=== PATIENT | female | born 1955 | race American Indian/Alaskan Native ===

== ENCOUNTER 2020-02-25 08:29 | Day surgery (SDC) | payer BC, MEDICARE ==
[~2020-02-25 08:29] MED LIST: LIDOCAINE MPF (2%) 20 MG/1 ML VIAL 5 ML ONE; SODIUM CHLORIDE 0.9% 1000 ML 1,000 ML IV SCH
--- NOTE | 2020-02-25 09:48 | Anesthesia Consultation ---
Anesthesia Consult and Med Hx Date of service: 02/25/20 - Airway Anesthetic Teeth Evaluation: Good, Dentures (upper incisor) ROM Head & Neck: Adequate Mental/Hyoid Distance: Adequate Mallampati Class: Class II Intubation Access Assessment: Probably Good - Pulmonary Exam CTA: Yes - Cardiac Exam Cardiac Exam: RRR - Pre-Operative Health Status ASA Pre-Surgery Classification: ASA3 Proposed Anesthetic Plan: MAC - Pulmonary Hx Smoking: No Hx Respiratory Symptoms: No - Cardiovascular System Hx Hypertension: No Hx Heart Attack/AMI: No Hx Percutaneous Transluminal Coronary Angioplasty (PTCA): No - Central Nervous System CVA: No - Gastrointestinal Hx Gastroesophageal Reflux Disease: No - Endocrine Hx Renal Disease: No Hx Cirrhosis: No Hx Liver Disease: Yes (HCV) Hx Insulin Dependent Diabetes: No Hx Non-Insulin Dependent Diabetes: No Hx Thyroid Disease: No - Other Systems Hx Obesity: Yes (BMI 51) - Additional Comments Anesthesia Medical History Comments: No hx anesthesia complications.
--- NOTE | 2020-02-25 09:49 | Anesthesia Day of Surgery ---
Anesthesia Day of Surgery - Day of Surgery Patient Examined: Yes Patient H&P Reviewed: Yes Patient is NPO: Yes
[2020-02-25] MEDS ORDERED: SODIUM CHLORIDE 0.9% 1000 ML 1,000 ML ONE (09:57)
[2020-02-25] MEDS ORDERED: propofoL 200 MG/20 ML VIAL IV ONE ×3 (11:43→12:01)
--- NOTE | 2020-02-25 12:21 | Procedure Note ---
Date of procedure: 02/25/20 Pre-op diagnosis: Dyspepsia/ F/H/O Stomach Cancer (father)/ Colon Polyp Screening Post-op diagnosis: other (Mild to Moderate Erosive Esophagitis/ Gastritis/Solitary Ascending Colon Polyp (removed by Cold Biopsy)/ Mild to Moderate Internal Hemorrhoid) Procedure: EGD with Biop[sy and Colonoscopy with Biopsy Anesthesia: NIC Surgeon: ALYSSA JACOBO Estimated blood loss: minimal Pathology: list Specimen disposition: to lab Condition: stable
--- NOTE | 2020-02-25 12:35 | Operative Report ---
PROCEDURE: Esophagogastroduodenoscopy with biopsy. INDICATIONS: This is a 65-year-old -[place] female with an underlying history of chronic hepatitis C, family history of stomach cancer. The patient's father had stomach cancer. She has been having some dyspeptic symptoms. EGD was done to make sure there was not any associated upper GI pathology present. She is also to have a colon polyp screening done. DESCRIPTION OF PROCEDURE: Procedure was done after getting informed consent with MAC anesthesia. Instrument was passed through the hypopharynx into the esophagus, which showed mild to moderate distal erosive esophagitis. Biopsy was done from the distal esophagus. The stomach showed gastritis, but no ulcers were noted either in the straight or retroverted view. Pylorus was patent. Duodenum in the first and second portion appeared normal. Biopsy was done from the gastric antrum, gastric body and angular incisura to rule out for H. pylori and atrophic gastritis. There was minimal bleeding associated with the procedure. No complications associated with the procedure. ASSESSMENT: Dyspepsia, family history of cancer. The patient's father had stomach cancer, [id number] distal erosive esophagitis, gastritis, no peptic ulcer disease noted. Patent pylorus. PLAN: Treat the patient with PPI, have the patient to avoid aspirin and aspirin-related products for the next few days and have the patient follow up in the office in 1-2 weeks' time. A colonoscopy is also to be done as part of colon polyp screening. JOB# [id number] BUSHRA/MARK
--- NOTE | 2020-02-25 12:43 | Operative Report ---
PROCEDURE: Colonoscopy. INDICATIONS: This is a 65-year-old -[place] female who has a family history of stomach cancer. The patient's father has stomach cancer, history of chronic hepatitis C. EGD had shown presence of mild to moderate distal erosive esophagitis, gastritis, but no peptic ulcer disease was noted. Colonoscopy was done as part of colon polyp screening. DESCRIPTION OF PROCEDURE: Initial rectal exam was unremarkable. Instrument was passed through the rectum onto the cecum, which was identified by the ileocecal valve and the appendiceal orifice. Visualization was fair to good. The cecum appeared normal in the proximal ascending colon, there was a 7-8 mm polyp noted that was removed by cold biopsy and removed. Remaining part of the ascending colon, transverse colon, descending colon, and sigmoid showed normal mucosa. There were no additional polyps, diverticular disease or colitis and the rectum showed mild to moderate internal hemorrhoid on the retroverted view. Again, there was minimal bleeding associated with the polypectomy and no complications associated with the procedure. ASSESSMENT: Colon polyp screening, solitary small ascending colon polyp removed by cold biopsy. Mild to moderate internal hemorrhoid. PLAN: To treat the patient with PPI because of the EGD findings of esophagitis, gastritis, have the patient to avoid aspirin and aspirin-related products for the next few days and follow up in the office in 1-2 weeks' time. Procedure was done in the GI lab with assistance of the GI lab team, which included RN, Doris Mead; [employer] bills and with assistance of anesthesia. JOB# [id number] BUSHRA/MARK
--- NOTE | 2020-02-25 13:00 | Post Anesthesia Evaluation ---
- Post Anesthesia Evaluation Patient Participated: Yes Airway Patent: Yes Stable Respiratory Function: Yes Nausea/Vomiting: No Temp > 96.8F: Yes Pain Manageable: Yes Adequeate Hydration: Yes Anesthesia Complications: No
[2020-02-25 18:01] VITALS: BP 152/86
== END 2020-02-25 08:30 | disposition home or self-care (01) ==
LOC: GIO 08:29
DX: Z12.11 Encounter for screening for malignant neoplasm of colon (principal); K64.8 Other hemorrhoids; K30 Functional dyspepsia; B18.2 Chronic viral hepatitis C; K29.50 Unspecified chronic gastritis without bleeding; B96.81 Helicobacter pylori [H. pylori] as the cause of diseases classified elsewhere; K63.89 Other specified diseases of intestine; K20.9 Esophagitis, unspecified; R13.10 Dysphagia, unspecified; E78.00 Pure hypercholesterolemia, unspecified; M19.90 Unspecified osteoarthritis, unspecified site; E66.9 Obesity, unspecified; Z79.899 Other long term (current) drug therapy; Z80.0 Family history of malignant neoplasm of digestive organs; Z68.43 Body mass index [BMI] 50.0-59.9, adult
CPT/HCPCS: 43239; 45380; 88305; 88342; J2704; J7030